=== PATIENT | female | born 1990 | race Caucasian/White ===

== ENCOUNTER 2018-01-12 11:47 | Outpatient (CLI) | payer BC ==
[~2018-01-12] VITALS: Ht 170.2 cm; Wt 67.4 kg
[~2018-01-12 11:47] MED LIST: ADDERALL20 MG PO; NO HOME MEDICATIONS; PERCOCET 325 MG1 TA2 PO
[2018-01-12] MEDS ORDERED: ULTRAM 50MG TAB50 MG PO (12:05)
[2018-01-12] MEDS ORDERED: IMITREX50 MG PO (12:06)
[2018-01-12] MEDS ORDERED: ZOFRAN 4MG T4 MG/TAB PO (12:07)
[2018-01-12 12:11] VITALS: BP 110/66; PULSE 69
[2018-01-12 13:06] VITALS: BP 120/76; PULSE 73
[2018-01-12 13:20] VITALS: BP 112/70; PULSE 69
[2018-01-12 13:35] VITALS: BP 111/69; PULSE 67
[2018-01-12 13:50] VITALS: BP 107/62; PULSE 66
[2018-01-12 14:05] VITALS: BP 105/61; PULSE 68
[2018-01-12 14:27] LABS: GLUCOSE,CSF 51 mg/dL (40-70); TOTAL PROTEIN,CSF 56 mg/dL (15-45)
[2018-01-12 14:55] LABS: CSF APPEARANCE CLEAR; CSF COLOR COLORLESS; CSF MONONUCLEAR 95 % (70-100); CSF RBC 4 /mm3 (0-0)
[2018-01-12 14:57] LABS: CSF POLYMORPHONUCLEAR 5 % (0-6)
== END 2018-01-12 14:40 | disposition home or self-care (01) ==
LOC: COL.RAD 11:47
PROVIDERS: Psychiatry & Neurology Neurology
DX: A92.30 West Nile virus infection, unspecified (principal); R51 Headache